=== PATIENT | male | born 1980 | race Caucasian/White ===

== ENCOUNTER 2019-10-01 20:19 | Emergency (ER) | payer BC ==
[2019-10-01] MEDS: Lidocaine 1% with EPINEPHrine 1:100,000 20 ML MDV INJECT ONE (20:25)
[2019-10-01] MEDS: Bacitracin Oint 1 GM U/D Packet TOP ONE (20:45)
--- NOTE | 2019-10-01 22:04 | ER ---
HISTORY OF PRESENT ILLNESS: A 39-year-old male here after sustaining a laceration to the left hand. He was doing something with rabbits in a rabbit cage when he caught his hand on top of the cage on a piece of steel. This was at a friend's house. The patient denies any other injuries. He denies any loss of function. He held the dressing to the area for a few minutes and this did seem to stem the flow of blood. OBJECTIVE: GENERAL APPEARANCE: The patient is awake and alert, in no obvious distress. VITAL SIGNS: Reviewed as listed. EXTREMITIES: Examining the left hand reveals a laceration involving the central aspect of the heel of his hand. It is transverse and measures just under 2.5 cm. It is through the epidermis with slight subcu tissue involvement. The patient can flex and extend his hand freely, and there is just a small amount of bleeding at this time. DIAGNOSIS: Laceration to left hand. TREATMENT PLAN: The site was anesthetized with 1% lidocaine with epi after which I cleansed it thoroughly. I then acquired sterile field and sutured the wound. It required 5 sutures using 4-0 Ethilon. Post care instruction, nursing staff will cleanse the area once again and apply a dressing. He is current on his tetanus status. He is to monitor for infection. Tylenol or ibuprofen should be used as needed. He is to keep the site covered for 2 or 3 days, and then it should be able to be opened to air. Suture removal should be in 8 to 10 days. SERGIO/MODL /[id number]
== END 2019-10-01 21:06 | disposition home or self-care (01) ==
LOC: LB.ED 20:19
DX: S61.412A Laceration without foreign body of left hand, initial encounter (principal); W23.1XXA Caught, crushed, jammed, or pinched between stationary objects, initial encounter
CPT/HCPCS: 12001; 99282